=== PATIENT | female | born 1940 | race Caucasian/White ===

== ENCOUNTER 2025-02-27 11:03 | Emergency (ER) | payer MEDICARE, SELFPAY ==
[2025-02-27 11:08] VITALS: BP 161/80; PULSE 89; TEMP 37.1; O2SAT 99; BMI 28.5
--- NOTE | 2025-02-27 11:22 | CT_ITS ---
[facility] [id number] Patient Name: MAIRA JAMESON MRN: [id number] date: 1940 Sex: F Assigned Patient Location: ED.MAIN Current Patient Location: ED.MAIN Accession/Order Number: [id number] Exam Date: 02/27/2025 12:34 Report Date: 02/27/2025 14:33 At the request of: CALLIE MC DO Procedure: CT abdomen pelvis w con Corrected report CT Abdomen and Pelvis withcontrast TECHNIQUE: Axial imaging with 2-D reconstruction. The CT exam was performed using one or more the following dose reduction techniques: Automated exposure control, adjustment of the MA and/or Kv according to patient size, or use of the iterative reconstruction technique. COMPARISON: None History: Constipation. Assessment for obstruction. History of colon cancer LIMITATIONS: None LOWER THORAX the basilar linear atelectasis/scarring. LIVER: Partial resection changes GALLBLADDER: No gallbladder abnormality identified. BILE DUCTS: No dilatation SPLEEN: Unremarkable PANCREAS: Unremarkable ADRENAL GLANDS: Unremarkable KIDNEYS:Unremarkable AORTA: No abdominal aortic aneurysm identified. RETROPERITONEUM: No significant retroperitoneal abnormalities identified. MESENTERY:Unremarkable STOMACH:Unremarkable SMALL BOWEL: The small bowel loops are nondistended. APPENDIX: Appendectomy changes identified. COLON: Large burden of stool throughout the colon anastomosis at the distal colon. Wall thickening of the rectal wall. Underdistention. Inflammatory change related present. No adjacent adenopathy. URINARY BLADDER: Urinary bladder is unremarkable. REPRODUCTIVE SYSTEM: The uterus is absent. PNEUMOPERITONEUM: None PERITONEAL FLUID:None BONY STRUCTURES: Degenerative change. Lumbar surgery changes ABDOMINAL WALL: Unremarkable CT/CT abdomen pelvis w con IMPRESSION: No small bowel obstruction. Large burden of stool throughout the colon consistent with constipation. Rectal wall thickening. Underdistention versus inflammatory or infiltrative change. Impression dictated by: Mario Landa M.D. 02/27/2025 2:33 PM Dictation Location: [employer] Electronically authenticated by: [id number] Y Date: 02/27/2025 14:33
--- NOTE | 2025-02-27 11:29 | ED.GENADUL1 ---
HPI HPI - General Adult General Chief complaint: Abdominal Pain Stated complaint: CONSTIPATED/ STOMACH BLOATED Time Seen by Provider: 02/27/25 11:07 Source: patient Mode of arrival: walk-in Limitations: no limitations History of Present Illness HPI narrative: Patient is an 84-year-old female presenting to the emergency department for evaluation of constipation. Patient states that over the last 4 days she has been unable to have a bowel movement and feels constipated. She is passing a small amount of flatulence. She states he is nauseous, but has not vomited. She has been using MiraLAX and other laxatives, however this has failed to help her have a bowel movement. She is only able to eat a small amount of chicken noodle soup yesterday, and has had decreased appetite. She denies dysuria or hematuria. No chest pain or shortness of breath. No fevers or chills. She states she has history of constipation, and was hospitalized 6 years ago for the same issue. Additionally, she states she has history of colon cancer s/p bowel resection and has been in remission for the last 16 years. Related Data Home Medications ?Medication ?Instructions ?Recorded ?Confirmed B6 1.7 mg-folic 400 mcg-B12 2.4 cap PO 02/27/25 llk-clcsae-hndnnjxhyugr oral capsule (Neuriva Plus Brain Performance) amlodipine 5 mg-benazepril 10 mg 1 cap PO DAILY 02/27/25 02/27/25 capsule ascorbic acid (vitamin C) 1,000 mg 1 g PO DAILY 02/27/25 02/27/25 tablet (C-1000) calcium carbonate (Calcium 500) 500 mg PO DAILY 02/27/25 02/27/25 cholecalciferol (vitamin D3) 50 50 mcg PO DAILY 02/27/25 02/27/25 mcg (2,000 unit) capsule (D3-2000) cyanocobalamin (vitamin B-12) 1,000 mcg PO DAILY 02/27/25 02/27/25 1,000 mcg tablet,extended release (Vitamin B-12 ER) loratadine 10 mg tablet (Allergy 10 mg PO DAILY 02/27/25 02/27/25 Relief (loratadine)) magnesium 250 mg tablet 250 mg PO DAILY 02/27/25 02/27/25 multivitamin (Daily Multi-Vitamin 1 tab PO DAILY 02/27/25 02/27/25 tablet) omega-3 900 mg-dha 360 mg-epa 455 cap PO 02/27/25 mg-fish oil 1,000 mg capsule (Fish Oil) peg 400-propylene glycol (PF) 0.4 1 drp ophthalmic (eye) DAILY PRN 02/27/25 02/27/25 %-0.3 % eye drops in a dropperette dry eye(s) (Lubricant Eye (PG-PEG 400) (PF)) polyethylene glycol 3350 17 17 g PO DAILY 02/27/25 02/27/25 gram/dose oral powder (ClearLax) propranolol 80 mg capsule,24 80 mg PO Q24H 02/27/25 02/27/25 hr,extended release triamcinolone acetonide 55 mcg 1 spray intranasal DAILY 02/27/25 02/27/25 nasal spray aerosol (24 Hour Nasal Allergy) zinc gluconate 50 mg tablet 50 mg PO DAILY 02/27/25 02/27/25 Previous Rx's ?Medication ?Instructions ?Recorded bisacodyl 10 mg rectal suppository 10 mg TN DAILY 6 days #12 ea 02/27/25 (Dulcolax (bisacodyl)) polyethylene glycol 3350 17 17 g PO DAILY PRN laxative effect 02/27/25 gram/dose oral powder (Miralax) #238 grams psyllium husk 3.4 gram/5.4 gram 1 tbsp PO DAILY #660 grams 02/27/25 oral powder (Metamucil) sodium phosphates 19 gram-7 118 ml TN DAILY PRN constipation 02/27/25 gram/118 mL enema (Enema) #133 mL Allergies Allergy/AdvReac Type Severity Reaction Status Date / Time No Known Drug Allergies Allergy Verified 02/27/25 11:07 Opioid HPI Opioid Management Most Recent Opioid Data: Last Pain Scale 6 Today, 11:08 Review of Systems ROS Status of ROS 10 or more systems reviewed and unremarkable except as noted in history and below PFSH PFSH Social History Little interest or pleasure in doing things: not at all Feeling down, depressed, or hopeless: not at all Exam Narrative Exam Narrative: CONSTITUTIONAL: Well-appearing, answering questions and following commands appropriately SKIN: Was warm and dry. EYES: Sclerae white. EARS, NOSE, THROAT: Dry mucous membranes RESPIRATORY: Clear to auscultation bilaterally, no wheezes, crackles, or stridor, no use of accessory muscles CARDIOVASCULAR: Normal rate and regular rhythm. There is no S3, S4, murmur, rub. GASTROINTESTINAL: There is mild tenderness to palpation throughout the abdomen, mostly in the left lower quadrant. No distention. No palpable masses. No rebound tenderness or guarding. MUSCULOSKELETAL: No peripheral edema. NEUROLOGIC: Patient is awake and alert. Facies were symmetrical. Constitutional Vital Signs, click to edit/add: Last Vital Signs Temp 98.8 F 02/27/25 11:08 Pulse 89 02/27/25 11:08 Resp 16 02/27/25 11:08 BP 161/80 H 02/27/25 11:08 Pulse Ox 99 02/27/25 11:08 O2 Del Method Room Air 02/27/25 11:08 Course Vital Signs Vital signs: Vital Signs Temperature 98.8 F 02/27/25 11:08 Pulse Rate 89 02/27/25 11:08 Respiratory Rate 16 02/27/25 11:08 Blood Pressure 161/80 H 02/27/25 11:08 Pulse Oximetry 99 02/27/25 11:08 Oxygen Delivery Method Room Air 02/27/25 11:08 Temperature 98.8 F 02/27/25 11:08 Pulse Rate 89 02/27/25 11:08 Respiratory Rate 16 02/27/25 11:08 Blood Pressure 161/80 H 02/27/25 11:08 Pulse Oximetry 99 02/27/25 11:08 Oxygen Delivery Method Room Air 02/27/25 11:08 Medical Decision Making MDM Narrative Medical decision making narrative: Patient is an 84-year-old female presenting to the emergency department with a 4-day history of constipation. Her history is significant for colon cancer s/p bowel resection in remission for the last 16 years. Her vital signs on arrival are significant for hypertension, otherwise within normal limits. She is afebrile and hemodynamically stable. Differential diagnose includes partial small bowel obstruction, malignant obstruction, constipation, diverticulitis, or other intra-abdominal pathologies. Patient's exam is not consistent with surgical etiologies of abdominal pain such as appendicitis, cholecystitis, or perforated viscus. IV was established and laboratory studies were obtained. CT abdomen/pelvis with IV contrast was ordered. She was given 1 L bolus of normal saline and 4 mg IV Zofran for initial treatment. CT abdomen/pelvis independently reviewed and interpreted by myself and radiology demonstrated constipation without evidence of small bowel obstruction. Laboratory studies were unremarkable. No significant electrolyte or metabolic derangement. No evidence of acute kidney injury. No anemia, leukocytosis, or thrombocytopenia. No transaminitis or hyperbilirubinemia. Patient's presentation is consistent with constipation. Rectal examination was performed and fecal disimpaction was attempted. There is no significant amount of stool in the rectal vault. She was given a Fleet enema and oral magnesium citrate. She did have a small bowel movement while here in the ED. She is tolerating multiple cups of water and an entire Nutrigrain bar. I do believe the patient is stable for discharge. They were instructed to follow up with her PCP for further care. Return precautions were given including any new or worsening symptoms. They were given a prescription for Metamucil, MiraLAX, enemas, and Dulcolax suppositories to use until she has normal bowel movements. Patient understands and agrees to the plan. FINAL IMPRESSION: #Acute constipation DISPOSITION: Discharged home CONDITION: Good Lab Data Lab results reviewed: Yes I reviewed the patient's lab results Labs: Lab Results 02/27/25 02/27/25 Range/Units 11:43 12:12 WBC 8.8 (4.0-11.0) 10^3/uL RBC 3.98 L (4.20-5.40) 10^6/uL Hgb 13.3 (12.0-16.0) g/dL Hct 38.9 (36.0-48.0) % MCV 97.7 (81.0-99.0) fL MCH 33.4 (26.7-34.0) pg MCHC 34.2 (29.9-35.2) g/dL RDW 12.6 (11.0-15.0) % Plt Count 249 (150-450) 10^3/uL MPV 9.6 (9.5-13.5) fL Neut % (Auto) 79.4 H (43.0-75.0) % Lymph % (Auto) 9.4 L (20.5-60.0) % [place] % (Auto) 9.6 (1.7-12.0) % Eos % (Auto) 0.8 L (0.9-7.0) % Baso % (Auto) 0.5 (0.2-2.0) % Neut # (Auto) 7.0 H (1.4-6.5) 10^3/uL Lymph # (Auto) 0.8 L (1.2-3.8) 10^3/uL [place] # (Auto) 0.8 (0.3-0.8) 10^3/uL Eos # (Auto) 0.1 (0.0-0.7) 10^3/uL Baso # (Auto) 0.0 (0.0-0.1) 10^3/uL Abs Immat Gran (auto) 0.03 (0.00-0.03) 10^3/uL Imm/Tot Granulo (auto) 0.3 (0.0-0.5) % Sodium 140 (136-145) mmol/L Potassium 4.4 (3.5-5.1) mmol/L Chloride 102 (98-107) mmol/L Carbon Dioxide 28.9 (21.0-32.0) mmol/L Anion Gap 13.5 BUN 17.0 (7.0-18.0) mg/dL Creatinine 1.06 H (0.55-1.02) mg/dL Est GFR ( Amer) 60 (>=60 mL/min/1.73m^2) Est GFR (Non-Af Amer) 49 L (>=60 mL/min/1.73m^2) BUN/Creatinine Ratio 16.0 Glucose 113 H (74-106) mg/dL Calcium 9.4 (8.5-10.1) mg/dL Total Bilirubin 0.8 (0.2-1.0) mg/dL AST 25 (15-37) U/L ALT 20 (14-59) U/L Alkaline Phosphatase 90 (46-116) U/L Total Protein 7.3 (6.4-8.2) g/dL Albumin 3.6 (3.4-5.0) g/dL Globulin 3.7 g/dL Albumin/Globulin Ratio 1.[address] scan - abdomen: Attestation: I personally reviewed and interpreted this imaging study as follows: Radiologist's impression: ITS Impressions Abdomen/Pelvis CT 02/27/25 11:22 IMPRESSION: No small bowel obstruction. Large burden of stool throughout the colon consistent with constipation. Rectal wall thickening. Underdistention versus inflammatory or infiltrative change. Impression dictated by: Mario Landa M.D. 02/27/2025 2:33 PM Dictation Location[facility] Electronically authenticated by: [id number] Y Date: 02/27/2025 14:33 Discharge Plan Discharge Chief Complaint: Abdominal Pain Clinical Impression: Constipation Patient Disposition: Home, Self-Care Time of Disposition Decision: 15:40 Condition: Good Mode of Transportation: Private Vehicle Prescriptions / Home Meds: New Metamucil 3.4 gram/5.4 gram powder 1 tbsp PO DAILY Qty: 660 0RF Rx Instructions: mix into at least 8 oz of water or juice before administering polyethylene glycol 3350 [Miralax] 17 gram/dose powder 17 g PO DAILY PRN (Reason: laxative effect) Qty: 238 0RF bisacodyl [Dulcolax (bisacodyl)] 10 mg suppository 10 mg TN DAILY 6 Days Qty: 12 0RF Enema 19-7 gram/118 mL enema 118 ml TN DAILY PRN (Reason: constipation) Qty: 133 0RF No Action amlodipine-benazepril 5-10 mg capsule 1 cap PO DAILY propranolol 80 mg capsule,extended release 24 hr 80 mg PO Q24H calcium carbonate [Calcium 500] 500 mg calcium (1,250 mg) tablet,chewable 500 mg PO DAILY zinc gluconate 50 mg tablet 50 mg PO DAILY Fish Oil 900 mg-360 mg- 455 mg-1,000 mg capsule PO multivitamin [Daily Multi-Vitamin] Tablet 1 tab PO DAILY magnesium 250 mg tablet 250 mg PO DAILY loratadine [Allergy Relief (loratadine)] 10 mg tablet 10 mg PO DAILY polyethylene glycol 3350 [ClearLax] 17 gram/dose powder 17 g PO DAILY Neuriva Plus Brain Performance 1.7 mg-400 mcg- 2.4 mcg capsule PO triamcinolone acetonide [24 Hour Nasal Allergy] 55 mcg aerosol,spray 1 spray intranasal DAILY Rx Instructions: administer into each nostril Lubricant Eye (PG-PEG 400)(PF) 0.4-0.3 % dropperette 1 drp ophthalmic (eye) DAILY PRN (Reason: dry eye(s)) ascorbic acid (vitamin C) [C-1000] 1,000 mg tablet 1 g PO DAILY cyanocobalamin (vitamin B-12) [Vitamin B-12] 1,000 mcg tablet extended release 1,000 mcg PO DAILY cholecalciferol (vitamin D3) [D32000] 50 mcg (2,000 unit) capsule 50 mcg PO DAILY Print Language: Greenlandic Instructions: Constipation (ED) Additional Instructions: Follow up with your PCP in 3-5 days. Referrals: KJ YANG [Primary Care Provider, Family Practice] - 1 week Discharge Date/Time: 02/27/25 16:07
--- OUTSIDE RECORDS SUMMARY | 2025-02-27 11:39 | XMS_ITS | Clinical Summary ---
Author Organization [employer] tem Address [id number] [address] [place] [address] Care Team Providers Care Branch Rental Manager Name Role Phone Letty Lynch MD Primary Care Provider [phone] Allergies No known active allergies Medications MedicationSigDispense QuantityRefillsLast FilledStart DateEnd DateStatus L. ACIDOPHILUS/PECTIN, CITRUS (ACIDOPHILUS PROBIOTIC ORAL) Take 1 capsule by mouth daily.Active amLODIPine-benazepril (LOTREL) 5-10 mg per capsule Take 1 capsule by mouth daily.Active BIOTIN ORAL Take 5,000 mg by mouth daily.Active multivitamin capsule Take 1 capsule by mouth daily.Active omega-3 fatty acids-vitamin E (FISH OIL) 1,000 mg capsule Take 1,000 mg by mouth daily.10/04/2015Active loratadine (CLARITIN) 10 mg tablet Take 10 mg by mouth daily.Active PSYLLIUM SEED, WITH SUGAR, (METAMUCIL ORAL) Take 2 capsules by mouth daily.Active ascorbic acid, vitamin C, (vitamin C) 1000 mg tablet Take 1,000 mg by mouth daily.Active cyanocobalamin (vitamin B-12) 1000 MCG tablet Take 1,000 mcg by mouth daily.Active fexofenadine (YARI) 180 mg tablet Take 180 mg by mouth daily.Active cholecalciferol, vitamin D3, (VITAMIN D3) 1,000 units tablet Take 1,000 Units by mouth daily.Active psyllium (METAMUCIL) 0.52 gram capsule Take 0.52 g by mouth daily.Active calcium carbonate-vitamin D3 (OSCAL 500 + D) 500 mg(1,250mg) -200 units per tablet Take 1 tablet by mouth 2 (two) times a day with meals.Active Active Problems ProblemNoted DateDiagnosed DateSpondylolisthesis of lumbar xnxtyd0301/10/2016 Family History Medical HistoryRelationNameCommentsStrokeBrotherCancerFatherBreast cancer Maternal AuntAlzheimer's diseaseMotherDiabetesMotherRelationNameStatusComments BrotherFatherMaternal AuntMother Social History Tobacco UseTypesPacks/DayYears UsedDateSmoking Tobacco: NeverSmokeless Tobacco: NeverAlcohol UseStandard Drinks/WeekCommentsNo0 (1 standard drink = 0.6 oz pure alcohol)ChildcareAnswerDate OyrnkyvnHhatcrswqOkbrvir46/12/2019EmploymentAnswer Date HvvzytpkUdmczxlvnqWsntrjw66/12/2019Purpose - LifeAnswerDate RecordedPurpose and direction in ykmxGpctrge50/11/2021CommentsUnknownSex and Gender InformationValueDate RecordedSex Assigned at BirthNot on fileLegal SexFemale 09/18/2015 1:50 PM EDTGender IdentityNot on fileSexual OrientationNot on file Last Filed Vital Signs Vital SignReadingTime TakenCommentsBlood Ptgexcuu107/8308 5:59 PM EDT Ihvsi05587/26/2019 5:59 PM IZDUhmkhqrheff77.8 ??C (98.3 ??F)10/26/2018 5:31 PM EDTRespiratory Fndd5287 5:59 PM EDTOxygen Achliyvrac27%10/26/2018 5:59 PM EDTInhaled Oxygen Concentration--Alshpq20.7 kg (180 lb 1.6 oz)10/26/2018 5:31 PM MRSTbprfz313 cm (5' 3 )10/26/2018 5:31 PM EDTBody Mass Index31.908 5:31 PM EDT Plan of Treatment Health MaintenanceDue DateLast DoneCommentsDepression Lwwpaniog31/11/1952Tobacco Powopmcra79/11/1952DTaP,Tdap and Td Vaccines (1 - Tdap)07/11/1958Fall Risk Pumqepfmm21/11/2005Zoster (Shingles) Vaccine (2 of 3)COVID- 19 Vaccine (7 - season)51, 12/26/2022, 11/20/2021, Additional history existsInfluenza Ispzhmw16/01/664307, 12/26/2022, 12/31/2021, Additional history existsRSV ( or age 60+ yrs)Completed 12/26/2022 Medical Devices Not on file Insurance Advance Directives TypeDate RecordedPatient RepresentativeExplanationLiving Will09/30/2015Living Will09/30/2015 Care Teams Team MemberRelationshipSpecialtyStart DateEnd Date Letty Lynch MD [address] [place], [place] [id number] PCP - GeneralFamily Medicine09/27/15
--- OUTSIDE RECORDS SUMMARY | 2025-02-27 11:39 | XMS_ITS | Clinical Summary ---
Author Organization [facility] Healthcare Address [address] [place] [address] Care Team Providers Care Inking Machine Tender Name Role Phone Lefty Pierce MD Unavailable [phone] Letty Lynch MD Primary Care Provider [phone] Rehana Pratt NP Unavailable [phone] Allergies No known active allergies Medications MedicationSigDispense QuantityRefillsLast FilledStart DateEnd DateStatus ascorbic acid (Vitamin C) 1000 MG tablet Take 1,000 mg by mouth in the morning.Active biotin 2.5 MG capsule Take 500 mg by mouth in the morning.Active cyanocobalamin (Vitamin B-12) 1000 MCG tablet Take 1,000 mcg by mouth in the morning.Active loratadine (Claritin) 10 MG tablet 1 (one) time each day at the same time.Active Misc Natural Products (Neuriva) capsule as directed OrallyActive Oakman-3 Fatty Acids (Fish Oil) 1000 MG capsule delayed-release 1 capsule 1 (one) time each day at the same time.Active Polyethyl Glycol-Propyl Glycol 0.4-0.3 % solution as directed OphthalmicActive Calcium Carbonate (CALCIUM 500 PO) Take by mouth.Active zinc 50 MG tablet Take by mouth.Active Multiple Vitamins-Minerals (MULTIVITAMIN WOMENS 50+ ADV PO) Take by mouth.Active Fluticasone Furoate (FLONASE SENSIMIST NA) Administer into affected nostril(s).Active Polyethylene Glycol 3350 (MIRALAX PO) Take by mouth.Active albuterol HFA 90 mcg/act inhaler Indications:SOB (shortness of breath)INHALE 2 PUFFS BY MOUTH EVERY 4 HOURS NEEDED FOR WHEEZING 6.7 g 5Active propranolol LA (Inderal LA) 80 MG 24 hr capsule Indications:TremorTake 1 capsule (80 mg) by mouth Daily Do not crush, chew, or split. 90 capsule 11085Active amLODIPine-benazepril (Lotrel) 5-10 MG capsule Indications:Benign essential hypertensionTAKE 1 CAPSULE DAILY 90 capsule 3105Active Active Problems ProblemNoted DateDiagnosed DateBPPV (benign paroxysmal positional vertigo), right4B12 nhwowncxfw51/17/2023enign essential mwbdvefzkktf95/17/2023 Assessment & Plan (01/04/2025 1:35 PM EST): -Discussed current management plan. Goal BP less then 130/80. Discussed heart healthy diet, increase fruits and vegetables, limit salt intake. Encouraged increase physical exercise, try to be as active as possible at least 150 mins per week. Importance of weight management with a goal BMI less then27 discussed. Discussed complications of uncontrolled blood pressure. Patient instructed to monitorBP's 1-2 times a week, keep a log, and bring to next visit. Barriers to care and medication compliance discussed. Patient voices understanding of meds. Difficulty vjdwzjd5201/17/20231094Jdgeq65/17/7047Vvtkzidgq69/17/2023Malignant neoplasm of colon01/17/2023Mild carotid artery ekhuvcq6401/17/2023Osteopenia determined by x-ray01/17/20232033Rpeoxjgzxljpd21/17/2023Seasonal allergic lysitkiz56/17/2023Slow transit pgugvjwecgjz34/17/2023Squamous cell carcinoma of skin of left lower keliawjoc86/17/2023Stage 3a chronic kidney xuxhhxw3001/17/2023 Assessment & Plan (01/04/2025 1:35 PM EST): -Drink plenty of fluids. Vaginal xrcqvtn4501/17/2023Varicose veins of left leg with edema01/17/2023 Spondylolisthesis of lumbar kolmta5801/10/2016Malignant neoplasm metastatic to liver12/26/2011 Encounters DateTypeDepartmentCare DhqbIsduhcamymr11/04/2025 1:00 PM ESTOffice Visit [facility] [address] [place] [address] Rehana Pratt NP Benign essential hypertension (Primary Dx); Tremor; Stage 3a chronic kidney disease (CMS-HCC); History of colon cancer; Slow transit constipation; SOB (shortness of breath)01/04/2025amboo flowsheet [facility] [address] [place] [address] Rehana Pratt NP 01/04/20255850Xabzbb65/17/2025Refill [facility] [address] [place] [address] Rehana Pratt NP Benign essential hypertensionfrom Last 3 Months Immunizations ImmunizationAdministration DatesNext DueInfluenza Whole01/05/2007Influenza, High Dose Seasonal, Preservative Free12/21/2018,12/10/2017,01/09/2017,12/19/2015, 12/09/2014Influenza, High-dose Seasonal, Quadrivalent, Preservative Free 12/19/2020Influenza, Seasonal, Quadrivalent, Xllbwuiqyk69/26/2023,12/31/2021, 12/24/2019Influenza, trivalent, tufqdxqggx71/31/2024Pneumococcal Conjugate PCV Pneumococcal Polysaccharide [id number], recombinant, protein subunit RSVpreF, adjuvant reconstitu, 120mcg/0.5mL, PF (Arexvy) 12/26/20228670FOVV-JJK-3 (COVID-19) vaccine, mRNA, spike protein, LNP, PF, 50 mcg/0.5 mL12/26/2022Zoster, live01/09/2015 Family History Medical HistoryRelationNameCommentsColon cancerFatherDiabetesMotherHypertension MotherRelationNameStatusCommentsFatherDeceasedMotherDeceased Social History Tobacco UseTypesPacks/DayYears UsedDateSmoking Tobacco: NeverSmokeless Tobacco: Never Tobacco Cessation:Counseling Given: Not Answered Alcohol UseStandard Drinks/WeekCommentsNot Currently0 (1 standard drink = 0.6 oz pure alcohol)caffeine intake: 0PHQ-2AnswerDate RecordedPatient Health Questionnaire-2 Mpmsy85703/06/2024CommentsUnknownSex and Gender InformationValueDate RecordedSex Assigned at BirthNot on fileLegal SexFemale 05/15/2022 7:28 PM EDTGender IdentityNot on fileSexual OrientationNot on file Last Filed Vital Signs Vital SignReadingTime TakenCommentsBlood Pkehynkv522/6801/04/2025 12:59 PM EST Oendo927301/04/2025 12:59 PM UJNTikqnwfedbi97.7 ??C (98.1 ??F)06/09/2024 2:25 PM EDTRespiratory Rate--Oxygen Mfvbqhaczy49%01/04/2025 12:59 PM ESTInhaled Oxygen Concentration--[place]57.1 kg (170 lb)01/04/2025 12:59 PM XTGFsimgn927 cm (5' 3 ) 01/04/2025 12:59 PM ESTBody Mass Index30. 12:59 PM EST Plan of Treatment DateTypeDepartmentCare Team (Latest Contact Info)Tuqqjeukhnj93/05/2026 1:30 PM EDTOffice Visit [facility] [place] [facility] [address] [facility] [place] [address] Rehana Pratt, DIRECTOR OF PHYSIOTHERAPY SERVICES [address], [place] [id number] Health MaintenanceDue DateLast DoneCommentsPneumococcal Vaccine: 65+ Years Nfjljxblo96/16/2017, 12/08/2014Influenza LpcqmqyYytzfxxfn72/07/2025, 01/01/2024, 12/26/2022, Additional history exists Insurance Advance Directives TypeDate RecordedPatient RepresentativeExplanationAdvance Directives and Living Will Living Will Care Teams Team MemberRelationshipSpecialtyStart DateEnd Date Lefty Pierce MD [address] [place] [address] PCP - [employer]03/03/21 Letty Lynch MD [address] [place], [place] [id number] PCP - GeneralFamily Medicine07/19/22 Rehana Pratt NP [address] [place], [place] [id number] Nurse PractitionerFamily Medicine07/19/22
--- OUTSIDE RECORDS SUMMARY | 2025-02-27 11:39 | XMS_ITS | Clinical Summary ---
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 Name Role Phone Letty Lynch MD Primary Care Provider [phone] Allergies No known active allergies Medications MedicationSigDispense QuantityRefillsLast FilledStart DateEnd DateStatus amLODIPine-benazepril 5-10 mg per capsule Take 1 capsule by mouth once daily.Active Aspirin 81 mg Tab Take 81 mg by mouth once daily.Active CALCIUM CARBONATE (CALTRATE 600 ORAL) Take 3 tablets by mouth once daily.Active Meclizine HCl 25 mg cap Take 1 tablet by mouth once daily.Active VITAMIN B COMPLEX (B COMPLEX 1 ORAL) Take 1 tablet by mouth once daily.Active ASCORBIC ACID (VITAMIN C ORAL) Take 1 tablet by mouth.Active [place]-3 Fatty Acids-Vitamin E (FISH OIL) 1,000 mg cap Take 1 capsule by mouth once daily.Active MULTI-VITAMIN ORAL Take 1 tablet by mouth once daily.Active Biotin 2,500 mcg cap Take 5,000 mg by mouth once daily.Active B INFANTIS/B ANI/B ANNA/B BIFID (PROBIOTIC 4X ORAL) Take 1 tablet by mouth once daily.Active Psyllium Seed-Sucrose (METAMUCIL) powd Take 1 Tablespoonful by mouth once daily.Active kfphd-8j-mpv-epa-fish oil-D3 (VITAMIN-D + OMEGA-3) 350 mg- 1,000 unit cap Take 1 tablet by mouth once daily.Active loratadine (CLARITIN) 10 mg tablet Take 10 mg by mouth once daily.Active Active Problems ProblemNoted DateDiagnosed DateLiver pliuqfsjob36/25/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 Last address used for calculationNot on file02/09/2020CommentsNoSex and Gender Information ValueDate RecordedSex Assigned at BirthNot on fileLegal LyeOujblr93/02/2012 10:12 AM ESTGender IdentityNot on fileSexual OrientationNot on file Last Filed Vital Signs Vital SignReadingTime TakenCommentsBlood Ipfryawf007/7312/10/2018 9:04 AM EDT Kemuu40665/10/2019 9:04 AM GSRKgbhunklxxu21.6 ??C (97.9 ??F)12/10/2018 9:04 AM EDTRespiratory Iffe1456 9:04 AM EDTOxygen Ougasqbusx57%12/10/2018 9:04 AM EDTInhaled Oxygen Concentration--Cknnda03.2 kg (168 lb 1.6 oz)12/10/2018 9:04 AM UZUCnzchq040 cm (5' 2.99 )12/10/2018 9:04 AM EDTBody Mass Index29.79 12/10/2018 9:04 AM EDT Plan of Treatment Health MaintenanceDue DateLast DoneCommentsAnxiety Mgrpcmesw00/11/1958Depression Wgvajeohc91/11/1958DTaP,Tdap,Td Vaccine (1 - Tdap)07/11/1958Shingrix Vaccine (1 of 2)07/11/1989Bone Density Lwmqyjhzt74/11/2005RSV Vaccine (1 - 1-dose 75+ series)07/11/2014Diabetes Odqkpvhmw25/10/684643, 10/26/2018, 06/03/2018, Additional history existsAdvance Directive Eoztwuazju58/01/2025ovid-19 Vaccine (1 - season)2024Influenza Vaccine (#1)51, 12/19/2015, 12/09/2014, Additional history existsPneumococcal Vaccine: 50+ Huvcsyuhy46/16/2017, 12/08/2014 Procedures Procedure NamePriorityDate/TimeAssociated DiagnosisCommentsCOMPREHENSIVE METABOLIC HHYCPQbxubaq32/10/2019 9:01 AM EDT Liver metastases (HCC) from Last 3 Months or Most Recently Relevant to Health Maintenance Results * (ABNORMAL) COMP METABOLIC PANEL (12/10/2018 9:01 AM EDT)ComponentValueRef RangeTest MethodAnalysis TimePerformed AtPathologist SignatureProtein, Total 7.36.3 - 8.0 g/dL12/11/2018 7:50 AM EDTC[facility] LaboratoriesAlbumin4.3 3.9 - 4.9 g/dL12/11/2018 7:50 [facility] QecltllosmrtYldfttd35.1 8.5 - 10.2 mg/dL12/11/2018 7:50 AM EDTCleveland Clinic LaboratoriesBilirubin, Total0.40.2 - 1.3 mg/dL12/11/2018 7:50 AM EDTC[facility] Laboratories Alkaline Ymoclyiwcai9318 - 123 U/L1 7:50 AM [facility]TC[facility] MogyqebgtpejGCC6657 - 35 U/L1 7:50 AM [facility]TC[facility] UxoweoprovwnQfqrrku7814 - 99 mg/dL12/11/2018 7:50 AM EDTCleveland Clinic LaboratoriesComment: The [place] Diabetes Association (ADA) provides guidance for cutoff values for fasting glucose and random glucose. The ADA defines fasting as no caloric intake for at least 8 hours. Fasting plasma glucose results between 100 to 125 mg/dL indicate increased risk for diabetes (prediabetes). Fasting plasma glucose results greater than or equal to 126 mg/dL meet the criteria for diagnosis of diabetes. In the absence of unequivocal hyperglycemia, results should be confirmed by repeat testing. In a patient with classic symptoms of hyperglycemia or hyperglycemic crisis, random plasma glucose results greater than or equal to 200 mg/dL meet the criteria for diagnosis of diabetes. Reference: Standards of Medical Care in Diabetes 2016, [place] [employer] Association. Diabetes Care. 2016.39(Suppl 1). RAQ824 - 21 mg/dL12/11/2018 7:50 AM [facility] LaboratoriesCreatinine 1.01(H)0.58 - 0.96 mg/dL12/11/2018 7:50 AM [facility] Doqjtn710738 - 144 mmol/L1 7:50 [facility] Potassium4.63.7 - 5.1 mmol/L1 7:50 AM [facility]DL[facility] Insbrplb7963 - 105 mmol/L1 7:50 AM EDTCtr[facility] systemand Clinic LaboratoriesCO2 2522 - 30 mmol/L1 7:50 AM [facility]DL[facility] LaboratoriesAnion Cxn611 - 18 mmol/L1 7:50 AM [facility] SqjvustdpsmhXLM368 - 38 U/L 12/11/2018 7:50 AM [facility] LaboratorieseGFR->60 12/11/2018 7:50 AM [facility] LaboratorieseGFR-All Other Races53. 12/11/2018 7:50 AM [facility] LaboratoriesComment: eGFR (Estimated GFR) Units of measure: mL/min/1.73 meters squared eGFR is derived from the reexpressed MDRD Study equation using the following parameters: serum creatinine, age, gender and race. The creatinine assay has been calibrated to be traceable to IDMS. An eGFR <60 mL/min/1.73m2 for >3 months is consistent with chronic kidney disease. Refer to KDOQI guidelines for clinical interpretation. In patients with unstable renal function, e.g. those with acute kidney injury, the eGFR may not accurately reflect actual GFR. Specimen (Source)Anatomical Location / LateralityCollection Method / Volume Collection TimeReceived TimeBlood specimen (specimen)BLOOD SPECIMEN / Unknown 12/10/2018 9:01 AM EDT1 9:03 AM EDT Narrative Authorizing ProviderResult TypeResult StatusJames E FanningLABORATORYFinal ResultPerforming OrganizationAddressCity/State/ZIP CodePhone Number [facility] [address] [place] [address] [facility] [address] [place] [address] from Last 3 Months or Most Recently Relevant to Health Maintenance Insurance Care Teams Team MemberRelationshipSpecialtyStart DateEnd Date Letty Lynch MD [address] [place] [phone] PCP - GeneralFamily Gihybiyn81/15/15
--- OUTSIDE RECORDS SUMMARY | 2025-02-27 11:39 | XMS_ITS | Clinical Summary ---
Author Organization [facility] Address [address] [place] [address] Care Team Providers Care Corporate Real Estate Manager Name Role Phone Unavailable Primary Care Provider Unavailabl e Social History Tobacco UseTypesPacks/DayYears UsedDateSmoking Tobacco: Never Assessed CommentsUnknownSex and Gender InformationValueDate RecordedSex Assigned at Not on fileLegal GuzYwnknu64/03/2013 1:51 PM ESTGender IdentityNot on fileSexual OrientationNot on file Plan of Treatment Health MaintenanceDue DateLast DoneCommentsDEXA SCAN YLXRWGOJRC86/11/1940TETANUS 1939TDAP (ADULT)07/11/1958CERVICAL CANCER SCREENING ABJTTBPITU13/11/1961 MAMMOGRAM SCREENING KPOTSZCAPW64/11/1980COLORECTAL CANCER SCREENING DISCUSSION 07/11/1984PNEUMOCOCCAL VACCINE SERIES (1 of 1 - PCV)07/11/1989ZOSTER (SHINGLES) VACCINE (1 of 2)07/11/1989RSV VACCINE (1 - 1-dose 75+ series)07/11/2014COVID-19 VACCINE ( - 2024- season)2024INFLUENZA VACCINE (#1)2024HEP B VACCINEAged OutNo longer eligible based on patient's age to complete this topic
[2025-02-27] MEDS: 0.9 % SODIUM CHLORIDE 1,000 ML 1000 ML IV (11:49)
[2025-02-27 12:10] LABS: Alanine Aminotransferase 20 U/L (14-59); Albumin Globulin Ratio 1.0; Albumin Level 3.6 g/dL (3.4-5.0); Alkaline Phosphatase 90 U/L (46-116); Anion Gap 13.5; Aspartate Amino Transferase 25 U/L (15-37); Blood Urea Nitrogen 17.0 mg/dL (7.0-18.0); Calcium 9.4 mg/dL (8.5-10.1); Carbon Dioxide 28.9 mmol/L (21.0-32.0); Chloride 102 mmol/L (98-107); Estimated GFR (African America 60 (>=60 mL/min/1.73m^2); Estimated GFR (Non-African Ame 49 (>=60 mL/min/1.73m^2); Globulin 3.7 g/dL; Glucose 113 mg/dL (74-106); Potassium 4.4 mmol/L (3.5-5.1); Sodium 140 mmol/L (136-145); Total Protein 7.3 g/dL (6.4-8.2)
[2025-02-27 12:20] LABS: Hematocrit 38.9 % (36.0-48.0); Hemoglobin 13.3 g/dL (12.0-16.0); Immature Granulocytes Abs Auto 0.03 10^3/uL (0.00-0.03); Immature Granulocytes Pct Auto 0.3 % (0.0-0.5); Lymphocytes Absolute Auto 0.8 10^3/uL (1.2-3.8); Mean Corpuscular HGB Conc 34.2 g/dL (29.9-35.2); Mean Corpuscular Hemoglobin 33.4 pg (26.7-34.0); Mean Corpuscular Volume 97.7 fL (81.0-99.0); Platelet Count 249 10^3/uL (150-450); Red Blood Count 3.98 10^6/uL (4.20-5.40); White Blood Count 8.8 10^3/uL (4.0-11.0)
[2025-02-27] MEDS: MAGNESIUM CITRATE 296 ML SOLUTION PO (14:15)
--- NOTE | 2025-02-27 14:58 | PC.NURSE ---
assisted pt with 2 fleet enemas at this time. small results. was able to drink entire bottle of mag citrate. informed dr klein
--- NOTE | 2025-02-27 15:27 | PC.NURSE ---
pt still worried that she hasn't had a bowel movement yet. encouraged pt that it may not happen right away, as it takes time for all medications and solutions to take effect. pt unsure if she wants to go home. Dr. Zelaya aware. son remains standing in the hallway despite being politely asked to go to pt's room.
== END 2025-02-27 16:07 | disposition home or self-care (01) ==
PROVIDERS: Emergency Provider Student in an Organized Health Care Education/Training Program; PCP Family Medicine
DX: K59.00 Constipation, unspecified (principal); Z85.038 Personal history of other malignant neoplasm of large intestine; Z90.49 Acquired absence of other specified parts of digestive tract
CPT/HCPCS: 36415; 74177; 80053; 85025; 96374; 99285; J2405; Q9967